=== PATIENT | female | born 1955 | race Caucasian/White ===

== ENCOUNTER 2016-12-30 08:47 | Day surgery (SDC) | payer OTHER ==
[~2016-12-30 08:47] MED LIST: LACTATED RINGERS 1,000 ML IV.SOLN IV ONE; PROPOFOL 500 MG/50 ML VIAL IV ONE; SALINE FLUSH 10 ML DISP.SYRIN IVF ONE
--- NOTE | 2016-12-31 09:15 | Operative Note ---
SURGEON: Sammy Hill ANESTHESIA: MAC anesthesia. ESTIMATED BLOOD LOSS: None. COMPLICATIONS: None. PREOPERATIVE DIAGNOSIS: History of colon polyps. POSTOPERATIVE DIAGNOSIS: Colon polyp. PROCEDURE PERFORMED: Colonoscopy with hot biopsy polypectomy. INDICATIONS FOR PROCEDURE: This is a 61-year-old woman who has had colon polyps in the past. She is having some rectal bleeding and now presents for a colonoscopy. DESCRIPTION OF PROCEDURE: Patient was brought to the endoscopy suite and placed in the left lateral decubitus position. A rectal examination was performed and there were no masses. The colonoscope passed easily to the cecum. The appendiceal orifice and ileocecal valve were identified. The colonoscope was slowly retracted being careful to inspect all batista. There was a greater than 6-minute withdrawal time. In the left colon, there was a small sessile polyp which was removed with hot biopsy forceps completely. In the rectum, there were some internal hemorrhoids with no bleeding. The colonoscope was removed. The patient tolerated the procedure well. FINDINGS: 1. Small sessile polyp in the left colon completely removed with hot biopsy. 2. Internal hemorrhoids. DISPOSITION: I recommend a repeat colonoscopy in 5 years. cc: Dr. Shyla SUBRAMANIAN
== END 2016-12-30 08:50 ==
LOC: OPSURG 08:47
PROVIDERS: ATTEND Colon & Rectal Surgery
DX: K63.5 Polyp of colon (principal); K64.8 Other hemorrhoids; K62.5 Hemorrhage of anus and rectum
CPT/HCPCS: J2704; J7120; 45384; S1016

== ENCOUNTER 2017-05-02 10:50 | Outpatient (CLI) | payer OTHER ==
[2017-05-02 12:55] LABS: eGFR (African) > 60; eGFR (Non-African) > 60
== END 2017-05-02 10:52 ==
LOC: LAB 10:50
PROVIDERS: ATTEND Family Medicine
DX: E03.9 Hypothyroidism, unspecified (principal); Z00.00 Encounter for general adult medical examination without abnormal findings
CPT/HCPCS: 36415; 80053; 80061; 84443

== ENCOUNTER 2017-09-06 13:26 | Outpatient (CLI) | payer OTHER | END 2017-09-06 13:27 | LOC: LAB 13:26 | PROVIDERS: ATTEND Family Medicine | DX: E03.9 Hypothyroidism, unspecified (principal) | CPT/HCPCS: 36415; 84443 ==

== ENCOUNTER 2018-05-10 08:51 | Outpatient (CLI) | payer OTHER ==
[2018-05-10 09:42] LABS: eGFR (Non-African) > 60
== END 2018-05-10 08:52 ==
LOC: LAB 08:51
PROVIDERS: ATTEND Family Medicine
DX: Z00.00 Encounter for general adult medical examination without abnormal findings (principal); Z13.6 Encounter for screening for cardiovascular disorders
CPT/HCPCS: 36415; 80053; 80061

== ENCOUNTER 2018-11-07 11:26 | Outpatient (CLI) | payer OTHER ==
[2018-12-19 11:55] LABS: eGFR (Non-African) > 60
== END 2018-11-07 11:28 ==
LOC: LAB 11:26
PROVIDERS: ATTEND Family Medicine
DX: R10.13 Epigastric pain (principal)
CPT/HCPCS: 36415; 74018; 80053; 85027

== ENCOUNTER 2018-11-28 11:23 | Outpatient (CLI) | payer OTHER ==
[2018-12-06 08:04] LABS: BASOPHILS % 0.5 % (0.0-1.5); NEUTROPHILS # 4.9 # k/uL (1.4-7.7); eGFR (Non-African) > 60
== END 2018-11-28 11:28 | disposition home or self-care (01) ==
LOC: LAB 11:23
PROVIDERS: ATTEND Nurse Practitioner Family
DX: R50.9 Fever, unspecified (principal); R53.83 Other fatigue; R05 Cough
CPT/HCPCS: 36415; 71020; 80053; 85025

== ENCOUNTER 2019-05-24 09:20 | Outpatient (CLI) | payer OTHER ==
[2019-05-24 10:45] LABS: HDL 48 mg/dL (>40); eGFR (Non-African) > 60
[2019-05-24 15:45] LABS: BASOPHILS % 0.4 % (0.0-1.5)
[2019-05-24 15:46] LABS: SEGMENTED NEUTROPHILS % 67 % (39-79)
== END 2019-05-24 09:25 ==
LOC: LAB 09:20
PROVIDERS: ATTEND Family Medicine
DX: Z13.0 Encounter for screening for diseases of the blood and blood-forming organs and certain disorders involving the immune mechanism (principal); Z13.220 Encounter for screening for lipoid disorders; E03.9 Hypothyroidism, unspecified
CPT/HCPCS: 36415; 80053; 80061; 84443; 85025